=== PATIENT | male | born 1935 | race Caucasian/White ===

== ENCOUNTER → 2020-08-31 | Outpatient (CLI) | payer MEDICARE, BC ==
[~2020-08-31] MED LIST: ASPIRIN EC81 MG PO; CIPRO500 MG PO; FISH OIL EC 1,1 EAC1 PO; FLONASE 0.05% N16 GM INH; IRON325 M1 PO; LASIX20 MG PO; LIPITOR TAB 2020 MG PO; LISINOPRIL20 MG PO; MULTIVITAMINS1 EAC2 PO; NORVASC 5 MG TAB5 MG PO; OMEPRAZOLE40 MG PO; PLAVIX 75 MG TA75 MG PO; PRINIVIL10 MG PO; PROTONIX40 MG PO; SIMVASTATIN10 MG PO; STOOL SOFTENER100 M1 PO; TEMAZEPAM15 MG PO; TYLENOL 325MG325 MG PO; VIAGRA100 MG PO
[2020-08-31 09:10] LABS: HEMOGLOBIN 15.8 gm/dl (14.0-17.5); RED BLOOD COUNT 5.04 M/UL (4.20-5.50); WHITE BLOOD COUNT 7.2 K/UL (4.5-11.0)
[2020-08-31 09:39] LABS: BUN/CREATININE RATIO 16 (0-10)
[2020-09-02 11:14] LABS: CHOLESTEROL, TOTAL 138 mg/dL (100-199); HDL SIZE 9.5 nm (>=9.2); HDL-C 55 mg/dL (>39); HDL-P (TOTAL) 33.7 umol/L (>=30.5); LARGE HDL-P 7.1 umol/L (>=4.8); LDL SIZE 21.3 nm (>20.5); LDL SIZE 21.3 nm (>=20.8); LDL-C 71 mg/dL (0-99); LDL-P 779 nmol/L (<1000); LP-IR SCORE 34 (<=45); SMALL LDL-P 291 nmol/L (<=527); TRIGLYCERIDES 55 mg/dL (0-149); VLDL SIZE 46.9 nm (<=46.6)
== END ==
LOC: LAB 08:26
PROVIDERS: Emergency Medicine
DX: I10 Essential (primary) hypertension (principal); R53.83 Other fatigue; R06.02 Shortness of breath; K21.9 Gastro-esophageal reflux disease without esophagitis; E78.2 Mixed hyperlipidemia; I67.89 Other cerebrovascular disease
CPT/HCPCS: 36415; 71046; 80053; 80061; 83704; 83880; 84443; 84484; 84550; 85025; 85379

== ENCOUNTER → 2020-09-01 | Outpatient (CLI) | payer MEDICARE, BC | LOC: CT 07:44 | DX: R06.02 Shortness of breath (principal); R53.83 Other fatigue; R59.9 Enlarged lymph nodes, unspecified | CPT/HCPCS: 71275; Q9967 ==

== ENCOUNTER → 2021-11-22 | Outpatient (CLI) | payer OTHER | LOC: KOH-I 08:00 | DX: R91.8 Other nonspecific abnormal finding of lung field (principal); R59.0 Localized enlarged lymph nodes; N13.30 Unspecified hydronephrosis | CPT/HCPCS: 71250 ==